=== PATIENT | female | born 1935 | race Caucasian/White ===

== ENCOUNTER → 2016-11-06 | Outpatient (CLI) | payer OTHER ==
[~2016-11-06] MED LIST: ASPIRIN; CALCIUM; CITALOPRAM HBR10 MG PO; CRESTOR; FOSAMAX; MULTI-VITAMIN1 TAB; NORVASC; OS-CAL; SYNTHROID; VITAMIN D-3
--- NOTE | ~2016-11-06 | MY11 ---
[facility] A Service of [facility] RADIOLOGY TEXT RESULTS PATIENT: ROCIO FERNANDEZ LOCATION: [facility] : 31 UNIT #: [id number] AGE: [address]: Yassine Muñoz MD SEX: F ORDER DR: [id number] [place] [id number] MR#: [id number] Acc #: [id number] NAME: ROCIO FERNANDEZ : 1935 SEX: F STUDY DATE/TIME: 11/06/2016 11:32 UNIT: [facility] ROOM: STUDY DESCRIPTION: MY Mammogram Screening [facility] Attending Physician: Yassine Muñoz Jr., M.D. Referring Physician: Yassine Muñoz Jr., M.D. Ordering Physician: Yassine Muñoz Jr., M.D. Primary Care Physician: Yassine Muñoz Jr., M.D. MEDICAL IMAGING REPORT This report is preliminary unless electronic signature is present. EXAM Digital screening mammogram, 11/06/2016, [facility]. HISTORY 81-year-old woman; family history of ovarian cancer in sister. Prior excisional left breast biopsies x2. Annual screening COMPARISON Comparison mammograms date to 03/19/2006, with most recent 03/19/2015. FINDINGS Digital imaging of each breast was completed, utilizing screening protocol. Review includes FDA-approved CAD device. Breast parenchyma is moderately dense with heterogeneous parenchymal densities in the subareolar locations and upper outer quadrants bilaterally. 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 There is no interval occurring mass. I see no suspicious microcalcifications and no architectural deformity. IMPRESSION Benign mammogram. Annual screening recommended. Patients over the age of 40 are entered into a reminder system with target due date for the next mammogram. A result letter will also be sent to the patient. BIRADS: 2 Benign finding. Dictated by... Erick Young M.D. [facility] A Service [facility] RADIOLOGY TEXT RESULTS PATIENT: ROCIO FERNANDEZ LOCATION: [facility] : 31 UNIT #: [id number] AGE: [address]: Yassine Muñoz MD SEX: F ORDER DR: THIS IS AN ELECTRONICALLY VERIFIED REPORT Erick Young M.D. at 11/07/2016 8:11 AM Vannesa TD: 11/06/2016 17:24 JOB #: [id number] MEDICAL IMAGING REPORT Page 1 of 1
== END | disposition home or self-care (01) ==
LOC: SMAM 10:28
DX: Z12.31 Encounter for screening mammogram for malignant neoplasm of breast (principal); Z91.89 Other specified personal risk factors, not elsewhere classified
CPT/HCPCS: G0202